=== PATIENT | female | born 1975 | race Caucasian/White ===

== ENCOUNTER 2023-04-21 10:00 | Day surgery (SDC) | payer OTHER ==
[~2023-04-21] VITALS: Ht 168 cm; Wt 59.6 kg
[2023-04-21] VITALS (16 sets, daily range): BP systolic 104–131; BP diastolic 64–84
[~2023-04-21 10:00] MED LIST: ACEASPCAF PO; ADVIL MIGRAINE; MULVITMINE PO; OXYACE5T PO; PROM25 PO
[2023-04-21] MEDS ORDERED: UBID10 PO (10:45)
[2023-04-21] MEDS ORDERED: B-12500 MC2 PO (10:47)
[2023-04-21] MEDS ORDERED: VITAMIN D31000 UNI1 PO (10:47)
[2023-04-21] MEDS ORDERED: MAGNESIUM OXID500 MG PO (10:47)
--- NOTE | 2023-04-21 15:50 | NUR ---
PT ARRIVED TO THE ROOM AT 1540. PT ALERT AND ORIENTED. PT REPORTED PAIN WAS TOLERABLE. PT ABLE TO TOLERATE PO. S/O AT THE BEDSIDE FOR SUPPORT. ABD LAP X4 WITH WOUND GLUE. SCANT VAGINAL SPOTTING. VSS.
--- NOTE | 2023-04-21 19:42 | NUR ---
GARDNER CATH REMOVED AT 1620. PT TOLERATED WELL.
--- NOTE | 2023-04-22 04:13 | NUR ---
SHIFT SUMMARY POD0 LAP HYSTER. X4 LAP SITES REMAIN C/D/I, BINDER REMAINS IN PLACE. VSS. PT SLEPT WELL T/O THE NIGHT. PT VOIDING W/O DIFFICULTY, TOLLERATING PO INTAKE W/O N/V, AMBULATING INDEPENDENTLY T/O ROOM AND HALLS. SCANT BLEEDING NOTED T/O THE NIGHT. NO ACUTE EVENTS T/O THE NIGHT. PLAN FOR PT TO D/C HOME TODAY. NO IGNITION SOURCE NOTED.
[2023-04-22 04:55] VITALS: BP 106/63
[2023-04-22 05:43] LABS: BASOPHILS ABSOLUTE AUTO 0.04 K/mm3 (0.00-0.23); BASOPHILS PERCENT AUTO 0 % (0-2); EOSINOPHILS ABSOLUTE AUTO 0.07 K/mm3 (0.00-0.68); EOSINOPHILS PERCENT AUTO 1 % (0-6); Hemoglobin 11.9 g/dL (11.5-16.0); IMMATURE GRAN ABSOLUTE AUTO 0.05 K/mm3 (0.00-0.10); IMMATURE GRAN PERCENT AUTO 0 % (0-1); LYMPHOCYTES ABSOLUTE AUTO 1.36 K/mm3 (0.84-5.20); LYMPHOCYTES PERCENT AUTO 10 % (21-46); MONOCYTES ABSOLUTE AUTO 0.89 K/mm3 (0.16-1.47); MONOCYTES PERCENT AUTO 7 % (4-13); Mean Corpuscular HGB 32.1 pg (26.0-34.0); Mean Corpuscular Volume 94 fL (80-100); Mean Platelet Volume 9.7 fL (9.1-12.4); NEUTROPHILS ABSOLUTE AUTO 10.94 K/mm3 (1.96-9.15); NEUTROPHILS PERCENT AUTO 82 % (41-73); Platelet Count 215 K/mm3 (150-400); RDW Coefficient Variation 12.3 % (11.7-14.2); RDW Standard Deviation 42.9 fL (35.1-46.3); Red Blood Cell Count 3.71 M/mm3 (3.80-5.20); White Blood Cell Count 13.35 K/mm3 (4.00-11.30)
--- NOTE | 2023-04-22 07:00 | NUR ---
PT ASSESSED FOR IGNITION SOURCES, NO FINDINGS.
[2023-04-22 07:13] VITALS: BP 106/68
[2023-04-22] MEDS ORDERED: Percocet 5-3251 EACH PO (10:25)
[2023-04-22] MEDS ORDERED: IBUP400 PO (10:25)
[2023-04-22] MEDS ORDERED: PROM25 PO (10:26)
[2023-04-22] MEDS ORDERED: SIME80CH PO (10:26)
[2023-04-22 11:10] VITALS: BP 105/75
--- NOTE | 2023-04-22 12:20 | NUR ---
DISCHARGE PT PROVIDED WITH WRITTEN AND VERBAL DISCHARGE INSTRUCTIONS; SHE AND HER SPOUSE REPORTED UNDERSTANDING. PAIN MANAGED AT TIME OF DISCHARGE, PERCOCET WAS GIVEN AND PT WAITED FOR IT TO START WORKING BEFORE DISCHARING HOME. VSS WITHIN 1 HOUR OF DISCHARGE. PT ABLE TO AMBULATE, PASS FLATUS, VOID AND TOLERATE PO. PT ASSISTED OUT IN W/C AT APPROXIMATELY 1200.
== END 2023-04-22 12:00 | disposition home or self-care (01) ==
LOC: ORSCMMR 10:00 → ORD 11:30 → SURS 15:09 → ORSCMMR 04-22 12:00
PROVIDERS: Obstetrics & Gynecology
PROC: 0UB04ZZ Excision of Right Ovary, Percutaneous Endoscopic Approach (ICD-10-PCS; principal; 2023-04-21 11:30)
PROC: 0UB74ZZ Excision of Bilateral Fallopian Tubes, Percutaneous Endoscopic Approach (ICD-10-PCS; principal; 2023-04-21 11:30)
PROC: 0UT94ZZ Resection of Uterus, Percutaneous Endoscopic Approach (ICD-10-PCS; principal; 2023-04-21 11:30)
DX: N92.0 Excessive and frequent menstruation with regular cycle (principal); N80.9 Endometriosis, unspecified; N94.6 Dysmenorrhea, unspecified; N94.10 Unspecified dyspareunia; R10.2 Pelvic and perineal pain; Z87.891 Personal history of nicotine dependence
CPT/HCPCS: 58571; 58570; S2900; 36415; 85025; 88305; 88307; 94760; A9270; J0690; J1100; J1885; J2250; J2405; J2704; J3010; J7120

== ENCOUNTER 2023-04-25 01:28 | Inpatient (IN) | payer OTHER ==
[~2023-04-25] VITALS: Ht 167.6 cm; Wt 60.6 kg
[~2023-04-25 01:28] MED LIST changes: +B-12500 MC2 PO; +IBUP400 PO; +MAGNESIUM OXID500 MG PO; +Percocet 5-3251 EACH PO; +SIME80CH PO; +UBID10 PO; +VITAMIN D31000 UNI1 PO
[2023-04-25 03:07] LABS: BASOPHILS ABSOLUTE AUTO 0.04 K/mm3 (0.00-0.23); BASOPHILS PERCENT AUTO 0 % (0-2); EOSINOPHILS ABSOLUTE AUTO 0.04 K/mm3 (0.00-0.68); EOSINOPHILS PERCENT AUTO 0 % (0-6); Hematocrit 39.2 % (33.0-51.0); Hemoglobin 13.3 g/dL (11.5-16.0); IMMATURE GRAN ABSOLUTE AUTO 0.06 K/mm3 (0.00-0.10); IMMATURE GRAN PERCENT AUTO 0 % (0-1); LYMPHOCYTES ABSOLUTE AUTO 0.54 K/mm3 (0.84-5.20); LYMPHOCYTES PERCENT AUTO 3 % (21-46); MONOCYTES ABSOLUTE AUTO 0.88 K/mm3 (0.16-1.47); MONOCYTES PERCENT AUTO 5 % (4-13); Mean Corpuscular HGB 31.5 pg (26.0-34.0); Mean Corpuscular HGB Conc 33.9 g/dL (31.5-36.5); Mean Corpuscular Volume 93 fL (80-100); Mean Platelet Volume 9.2 fL (9.1-12.4); NEUTROPHILS ABSOLUTE AUTO 14.79 K/mm3 (1.96-9.15); NEUTROPHILS PERCENT AUTO 91 % (41-73); Platelet Count 227 K/mm3 (150-400); RDW Standard Deviation 40.6 fL (35.1-46.3); Red Blood Cell Count 4.22 M/mm3 (3.80-5.20); White Blood Cell Count 16.35 K/mm3 (4.00-11.30)
[2023-04-25 03:24] LABS: Albumin, Blood 3.3 g/dL (3.4-5.0); Albumin/Globulin Ratio 0.9 (0.8-1.8); Bilirubin, Total 1.1 mg/dL (0.1-1.0); Calcium, Blood 8.4 mg/dL (8.5-10.1); Creatinine, Blood 0.58 mg/dL (0.40-1.00); Globulin, Blood 3.7 g/dL (2.2-4.0); Potassium, Blood 3.9 mmol/L (3.5-5.5)
[2023-04-25 04:39] LABS: Source, Urine Clean Catch
[2023-04-25 04:50] LABS: Bilirubin, Urine Neg (Neg); Blood, Urine 1+ (Neg); Glucose Qualitative, Urine Neg (Neg); Ketones, Urine Neg (Neg); Leukocyte Esterase, Urine Neg (Neg); Nitrite, Urine Neg (Neg); Protein, Urine 1+ (Neg); Urobilinogen, Urine NORM (Normal)
[2023-04-25 04:59] LABS: Appearance, Urine Clear (Clear); Color, Urine Pale Yellow (P-Yellow)
[2023-04-25 05:00] LABS: Bacteria Not Seen /hpf; Red Blood Cells, Urine 0-2 /hpf (0-2); Squamous Epithelial Cells Rare /hpf (Few); White Blood Cells, Urine 0-2 /hpf (0-5)
--- NOTE | 2023-04-25 06:55 | NUR ---
ASSUMPTION OF CARE PT ARRIVED TO PCU AT 0650. PT BROUGHT VIA WHEELCHAIR, PT ABLE TO TRANSFER INDEPENDENTLY TO HOSPITAL BED. PT REPORTS ABD PAIN. DENIES ANY OTHER CONCERNS OR ISSUES. PT REPORTS SHE DID HAVE BM BEFORE COMING TO THE ER, THAT WAS LOOSE/LIQUID AND BLACK IN COLOR. VSS; ALTHOUGH SBP A LITTLE SOFT AT 108. PT ORIENTED TO ROOM AND CALL LIGHT. WARM BLANKETS PROVIDED. DENIES ANY NEEDS AT THIS TIME. AT BEDSIDE. PT EDUCATED ON FIRE RISKS AND IGNITION SOURCES. PT VERBALIZES UNDERSTANDING
[2023-04-25 08:52] VITALS: BP 115/65
[2023-04-25 11:37] VITALS: BP 101/59
[2023-04-25 15:04] VITALS: BP 100/70
[2023-04-25 22:14] VITALS: BP 111/72
--- NOTE | 2023-04-26 00:54 | NUR ---
SAFETY & EDUCATION PT & FAMILY EDUCATED RE: IGNITION SOURCES AND RISK OF INJURY WHILE OXYGEN IS IN USE. PT DENIES SMOKING & PT AND FAMILY VERBALIZE UNDERSTANDING.
[2023-04-26 03:42] VITALS: BP 99/69
--- NOTE | 2023-04-26 04:48 | NUR ---
SHIFT SUMMARY PT A&Ox4, CALLS AND COMMUNICATES NEEDS APPROPRIATELY. BP STABLE, SOFT AT TIMES WITH SBP 90's, MAP> 65. PT NOT ON TELE, HR 80's, DENIES CP/PRESSURE. SpO2> 92% RA, DENIES SOB. IND IN ROOM, NO BM OR FLATULENCE THIS SHIFT. PT AMBULATED IN ROOM AND AROUND UNIT. MANAGED PAIN PER EMAR. NO OTHER EVENTSM WILL REPORT TO ONCOMING RN.
[2023-04-26 07:55] VITALS: BP 103/69
[2023-04-26 10:13] LABS: BASOPHILS ABSOLUTE AUTO 0.03 K/mm3 (0.00-0.23); BASOPHILS PERCENT AUTO 0 % (0-2); EOSINOPHILS ABSOLUTE AUTO 0.17 K/mm3 (0.00-0.68); EOSINOPHILS PERCENT AUTO 2 % (0-6); Hematocrit 35.1 % (33.0-51.0); IMMATURE GRAN ABSOLUTE AUTO 0.05 K/mm3 (0.00-0.10); IMMATURE GRAN PERCENT AUTO 1 % (0-1); LYMPHOCYTES ABSOLUTE AUTO 0.44 K/mm3 (0.84-5.20); LYMPHOCYTES PERCENT AUTO 4 % (21-46); MONOCYTES ABSOLUTE AUTO 0.79 K/mm3 (0.16-1.47); MONOCYTES PERCENT AUTO 7 % (4-13); Mean Corpuscular HGB Conc 34.2 g/dL (31.5-36.5); Mean Corpuscular Volume 94 fL (80-100); Mean Platelet Volume 9.3 fL (9.1-12.4); NEUTROPHILS ABSOLUTE AUTO 9.14 K/mm3 (1.96-9.15); NEUTROPHILS PERCENT AUTO 86 % (41-73); Platelet Count 206 K/mm3 (150-400); RDW Coefficient Variation 12.2 % (11.7-14.2); RDW Standard Deviation 42.2 fL (35.1-46.3); Red Blood Cell Count 3.75 M/mm3 (3.80-5.20); White Blood Cell Count 10.62 K/mm3 (4.00-11.30)
[2023-04-26 10:27] LABS: Albumin, Blood 2.9 g/dL (3.4-5.0); Albumin/Globulin Ratio 0.8 (0.8-1.8); Bilirubin, Total 0.6 mg/dL (0.1-1.0); Bun/Creatinine Ratio 9.9 (12.0-20.0); Calcium, Blood 8.1 mg/dL (8.5-10.1); Creatinine, Blood 0.61 mg/dL (0.40-1.00); Globulin, Blood 3.7 g/dL (2.2-4.0); Potassium, Blood 3.6 mmol/L (3.5-5.5); Total Protein, Blood 6.6 g/dL (6.4-8.2)
[2023-04-26 11:52] VITALS: BP 111/67
[2023-04-26 18:57] VITALS: BP 115/76
[2023-04-26 19:56] VITALS: BP 113/66
[2023-04-27 03:07] VITALS: BP 113/64
--- NOTE | 2023-04-27 04:44 | NUR ---
SHIFT SUMMARY SEE PREVIOUS NOTE. PT A&Ox4, CALLS AND COMMUNICATES NEEDS APPROPRIATELY. BP STABLE, PT NOT ON TELE, HR 80's, DENIES CP/PRESSURE. SpO2> 92% RA, DENIES SOB. IND IN ROOM, PT REPORTS MULTIPLE BM AND FLATULENCE THIS SHIFT. PT AMBULATED IN ROOM AND AROUND UNIT. MANAGED PAIN PER EMAR. NO OTHER EVENTSM WILL REPORT TO ONCOMING RN.
[2023-04-27 07:56] VITALS: BP 106/75
--- NOTE | 2023-04-27 15:58 | NUR ---
PT DISHARGE TO HOME WITH DISCHARGE ORDERS. PT HAS BEEN PLEASANT AND COOPERATIVE FOR THE SHIFT. VITALS HRR SR 70-80'S, SBP 100'S, SATS ABOVE 95% ON RA, AFEBRILE. PT STILL HAS 4-6/10 PAIN ON ABDOMEN MEDICATED WITH TORADOL TWICE FOR THE SHIFT, ABDOMINAL BINDER IN PLACE, INCISION SITES INTACT WITH NO S/S OF INFECTION. REGULAR DIET RESUMED, TOLERATED WELL FOR LUNCH. PT REPORTED BOWEL MOVEMENT AND PASSING GAS THIS MORNING. DR LAI SAW PT AT BEFORE LUNCH TIME. PT TO FOLLOW UP OUTPT. ALL BELONGINGS SENT WITH THE PT ACCOMPANIED VIA WHEELCHAIR FOR TRANSPORT
== END 2023-04-27 14:30 | disposition home or self-care (01) | DRG 389 ==
LOC: ER 01:28 → PCU 01:29
PROVIDERS: Student in an Organized Health Care Education/Training Program; ADMIT Obstetrics & Gynecology
DX: K56.7 Ileus, unspecified (principal); K91.89 Other postprocedural complications and disorders of digestive system; G89.18 Other acute postprocedural pain; D72.829 Elevated white blood cell count, unspecified; K58.9 Irritable bowel syndrome, unspecified; E55.9 Vitamin D deficiency, unspecified; E03.9 Hypothyroidism, unspecified; M19.90 Unspecified osteoarthritis, unspecified site; G43.909 Migraine, unspecified, not intractable, without status migrainosus; F41.9 Anxiety disorder, unspecified; Z79.891 Long term (current) use of opiate analgesic; Z79.899 Other long term (current) drug therapy; Z88.0 Allergy status to penicillin; Z79.1 Long term (current) use of non-steroidal anti-inflammatories (NSAID); Z90.710 Acquired absence of both cervix and uterus; Z90.89 Acquired absence of other organs; Z90.49 Acquired absence of other specified parts of digestive tract; Z87.39 Personal history of other diseases of the musculoskeletal system and connective tissue; Z87.891 Personal history of nicotine dependence
CPT/HCPCS: 36415; 74177; 80053; 81001; 83690; 85025; 96361; 96365-59; 96366; 96367; 96375; 96376; 99285-25; A9270; G0378; J0690; J1170; J1885; J2405; J7030; J7050; Q9967